=== PATIENT | male | born 1975 | race Caucasian/White ===

== ENCOUNTER 2016-12-31 20:58 | Inpatient (IN) | payer OTHER ==
[~2016-12-31] VITALS: Ht 177.8 cm; Wt 99.2 kg
[2016-12-31] MEDS ORDERED: MoRPHine SULFATE 4 MG/ML 1 ML CARP\\VIAL IV STA (22:00)
--- NOTE | 2016-12-31 22:11 | EMERGENCY ROOM VISIT NOTE ---
History First contact with patient: 21:52 Chief Complaint: KNEEPAIN Stated Complaint: FLUID ON RIGHT KNEE History of Present Illness The patient is a 41 year old male who presents to the Emergency Room with complaints of right knee pain and swelling that started approximately one week ago. He states last Monday that he went to another emergency department with a total him to ice the knee and take naproxen which she has been doing. He states that the knee was feeling better until a few days ago when the pain is swelling got significantly worse. He has not been able to walk on the knee since yesterday due to severe pain. He denies any injury to the knee. He has had some associated chills, but is unsure of fevers, that started today. He reports a remote history of fluid on his right knee approximately 20 years ago, he does not remember what this was from, but states that they drained it and it got better and he has not had any recurrent issues with it until now. He is unsure of any known tick exposure, thinks but states that he has several dogs and had a dog that was diagnosed with Lyme disease in the past. Denies any other symptoms of headache, neck pain or stiffness, chest pain, shortness of breath, abdominal pain, back pain, urinary symptoms, calf pain or swelling, rash. Review of Systems A complete 10 point review of systems was reviewed with the patient with pertinent positives and negatives as per history of present illness. All else were negative. Past Medical/Surgical History Medical Problems: (1) Infection of right knee Social History Smoking Status: Never Smoker Current/Historical Medications Scheduled Cetirizine (Zyrtec), 10 MG PO DAILY Naproxen (Naprosyn), 500 MG PO BID Simvastatin (Zocor), Unknown Dose PO QPM Scheduled PRN [Unknown Antacid], 1 TAB PO DAILY PRN for GI Upset Physical Exam Vital Signs Date Time Temp Pulse Resp B/P (MAP) Pulse Ox O2 Delivery O2 Flow Rate FiO2 01/01/17 09:00 79 16 125/69 94 Nasal Cannula 4 01/01/17 08:50 83 16 170/80 98 Nasal Cannula 4 01/01/17 08:40 90 16 165/87 98 Oxymask 15 01/01/17 08:30 102 16 159/92 98 Oxymask 15 01/01/17 08:21 36.7 104 16 163/100 98 Oxymask 15 01/01/17 06:33 70 18 124/68 96 Room Air 01/01/17 04:54 80 18 122/62 98 Room Air 01/01/17 03:05 71 16 127/63 96 Room Air 01/01/17 01:14 73 16 115/68 98 Room Air 12/31/16 23:14 76 16 130/71 98 Room Air 12/31/16 21:04 37.4 104 18 159/96 96 Room Air Physical Exam CONSTITUTIONAL: No acute distress. Well appearing and well nourished. Alert and oriented X 4 with normal affect. HEENT: Normocephalic, atraumatic. Pupils equal, round and reactive to light, EOMI. TMs normal. Pharynx normal. NECK: Supple, full active range of motion without discomfort. RESPIRATORY: Clear to auscultation bilaterally with no wheezing, crackles, rhonchi or stridor. Equal expansion bilaterally. CARDIOVASCULAR: Regular rate and rhythm with no murmurs, rubs or gallops. Normal peripheral perfusion. No edema. GASTROINTESTINAL: Soft, nontender, nondistended. Bowel sounds present in all quadrants. MUSCULOSKELETAL: The right knee is moderately tender, swollen, slightly erythematous, and warm to touch. There is a large effusion noted. Unable to fully extend the knee, only flexes to approximately 30 due to severe worsening of pain. Full range of motion of all other joints without discomfort. INTEGUMENTARY: No rash or other significant dermatologic conditions noted. NEUROLOGIC: Cranial nerves II-XII grossly intact. No focal neurologic deficits noted. Medical Decision & Procedures ER Provider Diagnostic Interpretation: RIGHT KNEE 2 VIEWS CLINICAL HISTORY: Right knee pain and swelling. Trauma. FINDINGS: AP and crosstable lateral views of the right knee are obtained. No prior studies are available for comparison at the time of dictation. The skeletal structures are well mineralized. No fracture is seen. There is mild degenerative narrowing at the patellofemoral articulation. There are marginal osteophytes and patellar enthesophytes. A large joint effusion is noted. Prepatellar soft tissue swelling is observed. IMPRESSION: Prepatellar soft tissue swelling and large joint effusion. No right knee fracture is identified. Laboratory Results 12/31/16 22:13 Test 12/31/16 22:13 01/01/17 01:20 Immature Granulocyte % (Auto) 0.4 % White Blood Count 10.47 K/uL (4.8-10.8) Red Blood Count 4.81 M/uL (4.7-6.1) Hemoglobin 15.0 g/dL (14.0-18.0) Hematocrit 42.8 % (42-52) Mean Corpuscular Volume 89.0 fL (80-100) Mean Corpuscular Hemoglobin 31.2 pg (25-34) Mean Corpuscular Hemoglobin Concent 35.0 g/dl (32-36) Platelet Count 184 K/uL (130-400) Mean Platelet Volume 11.1 fL (7.4-10.4) Neutrophils (%) (Auto) 61.2 % Lymphocytes (%) (Auto) 26.7 % Monocytes (%) (Auto) 9.5 % Eosinophils (%) (Auto) 1.9 % Basophils (%) (Auto) 0.3 % Neutrophils # (Auto) 6.41 K/uL (1.4-6.5) Lymphocytes # (Auto) 2.80 K/uL (1.2-3.4) Monocytes # (Auto) 0.99 K/uL (0.11-0.59) Eosinophils # (Auto) 0.20 K/uL (0-0.5) Basophils # (Auto) 0.03 K/uL (0-0.2) Immature Granulocyte # (Auto) 0.04 K/uL (0.00-0.02) Erythrocyte Sedimentation Rate 28 mm/hr (0-14) Anion Gap 7.0 mmol/L (3-11) Est Creatinine Clear Calc Drug Dose 103.4 ml/min Estimated GFR () 95.1 Estimated GFR (Non- 82.0 BUN/Creatinine Ratio 11.9 (10-20) Uric Acid 6.3 mg/dl (2.6-7.2) Calcium Level 9.0 mg/dl (8.5-10.1) Total Bilirubin 2.1 mg/dl (0.2-1) Direct Bilirubin 0.4 mg/dl (0-0.2) Aspartate Amino Transf (AST/SGOT) 11 U/L (15-37) Alanine Aminotransferase (ALT/SGPT) 32 U/L (12-78) Alkaline Phosphatase 77 U/L (45-117) C-Reactive Protein 6.39 mg/dl (0-0.29) Total Protein 7.3 gm/dl (6.4-8.2) Albumin 4.0 gm/dl (3.4-5.0) Thyroid Stimulating Hormone (TSH) 1.890 uIu/ml (0.300-4.500) Lyme Disease IgG Antibody NEG (NEG) Lyme Disease IgM Antibody NEG (NEG) Anti-Streptolysin O Antibody Screen POS IU/ml (<200 IU) Anti-Streptolysin O Antibody Titer 200 IU/ml (<200 IU) Synovial Fluid Source KNEE Synovial Fluid Color EUGENE Synovial Fluid Appearance CLOUDY Synovial Fluid WBC 01582 /uL (0-200) Synovial Fluid RBC 91405 /uL Synovial Fluid Polynuclear WBCs % 95.1 % Synovial Fluid Mononuclear WBCs % 4.9 % Medications Administered Medications (Trade) Dose Ordered Sig/Kristian Route Start Time Stop Time Status Last Admin Dose Admin Morphine Sulfate (MoRPHine SULFATE INJ) 4 mg NOW STAT IV 12/31/16 22:00 12/31/16 22:05 DC 12/31/16 22:00 4 MG Morphine Sulfate (MoRPHine SULFATE INJ) 4 mg NOW STAT IV 01/01/17 00:50 01/01/17 00:51 DC 01/01/17 00:50 4 MG Bacitracin (Bacitracin Inj) 150,000 units STK-MED ONCE .ROUTE 01/01/17 06:16 01/01/17 06:17 DC 01/01/17 06:16 50,000 UNITS Lidocaine/ Epinephrine (Xylocaine/Epine 1% Inj) 20 ml STK-MED ONCE .ROUTE 01/01/17 06:40 01/01/17 06:41 DC 01/01/17 06:40 10 ML Oxycodone HCl (Roxicodone Immediate Rel Tab) 1-2 TABS FOR PAIN 1 TABLET ... Q4H PRN PO 01/01/17 09:00 01/15/17 08:59 01/01/17 15:30 10 MG Procedure Knee Arthrocentesis, right Indication: Knee effusion, warm to touch, rule out septic arthritis Verbal consent was obtained after the risks and benefits were explained, including but not limited to bleeding/clotting, scarring, infection, pain, and bone/joint/nerve damage. At this time, the risks of the procedure are less than the risks of NOT performing the procedure. A time out was taken and the correct patient and site identified. The patient was placed in the supine position with a towel roll under the right knee in a slightly flexed position. The knee was prepped with betadine and draped in the standard sterile fashion. The superior lateral joint space was identified, anesthetized locally with 1% buffered lidocaine. An 18G needle was inserted through the skin, and constant steady traction was applied to the syringe as the needle was slowly advanced, until return of fluid was achieved. 65 mL of hazy, yellow fluid drained from the joint space. Fluid sent to the lab for evaluation. The needle was removed and the skin was cleaned with sterile gauze and saline, and a bandaid was placed over the insertion site. The patient tolerated the procedure well and there were no complications. Medical Decision CC: Patient presenting with complaint of right knee pain/swelling Interpretation of Labs: No leukocytosis, no anemia, no significant ocular abnormalities, normal renal function, normal liver enzymes, elevated inflammatory markers. Differential Diagnosis: Includes, but not limited to differential diagnoses includes knee sprain/strain, joint effusion, Lyme arthritis, gout, septic joint , among others. Medication Reconciliation: I attest that I have personally reviewed the patient' s current medication list. Vital signs review: I reviewed the patient's vital signs and interpret them as follows: T: Afebrile; BP: Hypertensive; HR: Tachycardic; RR: Within normal limits; Pulse Ox: Within normal limits on room air. Summary: Patient was evaluated at bedside, history of physical exam performed. Patient is alert and in no acute distress, resting calmly in the stretcher. Evaluation of the right knee reveals a large effusion, very tender to palpation , warm to touch when compared to the rest of the leg, slightly erythematous, with significantly diminished range of motion. Orders were placed at bedside for labs including ESR, CRP, Lyme titers, right knee x-ray to evaluate for bony abnormalities. Patient is low risk for septic arthritis by Yaron score, and patient is afebrile, therefore blood cultures were not drawn. Right knee arthrocentesis was performed due to concern for septic joint, and studies were sent to the lab. Patient discussed with Dr. Olivas, who agrees with my assessment and plan. Labs reviewed as above, notable for elevated inflammatory markers. X-ray shows no acute bony abnormalities. Arthrocentesis of the right knee performed as above. Cloudy yellow fluid drained. Reviewed synovial fluid, concerning for large blood cell count. Gram stain reviewed which also shows multiple blood cells with no organisms identified. 4:40am - I spoke on the phone with Dr. Franco, Orthopedics, who agrees to evaluate the patient. After evaluation of the patient, Dr. Arrieta agrees with concern for septic joint and is taking the patient to the OR later today. Patient stable at time of admission. Impression Primary Impression: Septic arthritis of knee, right Departure Information Dispostion Admitted as an inpatient Condition FAIR Referrals No Doctor, Assigned (PCP) Patient Instructions My [facility] Problem Qualifiers Primary Impression: Septic arthritis of knee, right Septic arthritis organism: due to unspecified organism Qualified Codes: M00.9 - Pyogenic arthritis, unspecified
[2016-12-31] MEDS ORDERED: SIMV10TA2 PO (22:19)
[2016-12-31] MEDS ORDERED: CETI10TA84 PO (22:19)
[2016-12-31] MEDS ORDERED: [UNRECOGNIZED DRUG - REMARK] PO (22:20)
[2016-12-31] MEDS ORDERED: NAPR-1169 PO (22:21)
[2016-12-31 22:33] LABS: BASO % 0.3 %; BASO ABS # 0.03 K/uL (0-0.2); COMPLETE YES; EOS % 1.9 %; HEMATOCRIT 42.8 % (42-52); IG% 0.4 %; LYMPH % 26.7 %; MEAN CORPUSCULAR HEMOGLOBIN 31.2 pg (25-34); MEAN PLATELET VOLUME 11.1 fL (7.4-10.4); MONO % 9.5 %; NEUT % 61.2 %; PLATELET COUNT 184 K/uL (130-400); RED BLOOD COUNT 4.81 M/uL (4.7-6.1); WHITE BLOOD COUNT 10.47 K/uL (4.8-10.8)
[2016-12-31 22:56] LABS: BUN/CREATININE RATIO 11.9 (10-20); CREATININE 1.11 mg/dl (0.60-1.40); POTASSIUM 4.1 mmol/L (3.5-5.1); URIC ACID 6.3 mg/dl (2.6-7.2)
[2016-12-31 23:00] LABS: ANTI-STREP O SCR: 5YRS OR > POS IU/ml (<200 IU)
--- NOTE | 2016-12-31 23:04 | DIAGNOSTIC IMAGING REPORT ---
RIGHT KNEE 2 VIEWS CLINICAL HISTORY: Right knee pain and swelling. Trauma. FINDINGS: AP and crosstable lateral views of the right knee are obtained. No prior studies are available for comparison at the time of dictation. The skeletal structures are well mineralized. No fracture is seen. There is mild degenerative narrowing at the patellofemoral articulation. There are marginal osteophytes and patellar enthesophytes. A large joint effusion is noted. Prepatellar soft tissue swelling is observed. IMPRESSION: Prepatellar soft tissue swelling and large joint effusion. No right knee fracture is identified. Electronically signed by: Wilmer Curry M.D. 12/31/2016 11:02 PM Dictated Date/Time: 12/31/2016 11:01 PM
[2016-12-31 23:07] LABS: C-REACTIVE PROTEIN 6.39 mg/dl (0-0.29); THYROID STIMULATING HORMONE 1.89 uIu/ml (0.300-4.500)
[2016-12-31 23:08] LABS: ANTI-STREP O TITRE: 5YR OR > 200 IU/ml (<200 IU)
[2016-12-31 23:24] LABS: LYME DISEASE AB IGG NEG (NEG); LYME DISEASE AB IGM NEG (NEG)
[2017-01-01] VITALS (7 sets, daily range): BP systolic 99–131; BP diastolic 60–84; PULSE 71–95; TEMP 36.8–37.9; O2SAT 92–97; Ht 177.8 cm; Wt 99.2 kg
[2017-01-01] MEDS ORDERED: MoRPHine SULFATE 4 MG/ML 1 ML CARP\\VIAL IV STA (00:50)
[2017-01-01] MEDS ORDERED: XYLOCAINE 1%/SOD BICARB 20 ML VIAL INFIL ONE (01:00)
[2017-01-01 03:37] LABS: SYNOVIAL FLUID APPEARANCE CLOUDY; SYNOVIAL FLUID COLOR AMBER; SYNOVIAL FLUID MONONUC RELAT 4.9 %; SYNOVIAL FLUID POLYNUC RELAT 95.1 %
--- NOTE | 2017-01-01 06:10 | Orthopedic Consultation ---
Orthopedic Consultation Date of Consultation: Jan 01, 2017. Attending Physician: Reason for Consultation: Right knee pain and swelling History of Present Illness Patient is a 41-year-old male with no significant past medical history is had increasing right knee pain. He started having a little bit of discomfort last week. Denies trauma. He was seen in [place] emergency room and was instructed to follow up with us in the office this past week. 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 During the week his knee pain improved. However starting on Monday he had progressive pain and swelling in the knee to the point where he is no longer able to bear weight on it. He denies fevers but did have some chills however this was when he was standing outside in the cold. He had fluid aspirated from it here in the emergency room however he states that the knee has swollen backup since that time. It had felt better after the aspiration. However now his pain is starting to come back as the swelling has recurred. Social History Smoking Status: Never Smoker Drug Use: none Marital Status: Housing Status: lives with family Occupation Status: employed Allergies Coded Allergies: No Known Allergies (Unverified , 12/31/16) Home Medications Scheduled Cetirizine (Zyrtec), 10 MG PO DAILY Naproxen (Naprosyn), 500 MG PO BID Simvastatin (Zocor), Unknown Dose PO QPM Scheduled PRN [Unknown Antacid], 1 TAB PO DAILY PRN for GI Upset Review of Systems Constitutional: + chills, No fever, No weight loss Eyes: No worsening of vision ENT: No hearing loss Respiratory: No cough Cardiovascular: No chest pain Abdomen: No pain Musculoskeletal: + joint pain Physical Exam Date Time Temp Pulse Resp B/P (MAP) Pulse Ox O2 Delivery O2 Flow Rate FiO2 01/01/17 04:54 80 18 122/62 98 Room Air 01/01/17 03:05 71 16 127/63 96 Room Air 01/01/17 01:14 73 16 115/68 98 Room Air 12/31/16 23:14 76 16 130/71 98 Room Air 12/31/16 21:04 37.4 104 18 159/96 96 Room Air Right knee: There is a large effusion. He is tender to palpation over the suprapatellar pouch. Range of motion is 0-30 limited by pain. The knee is stable to varus and valgus stress at 0 and 30 of flexion. No tenderness to palpation on the medial or lateral joint lines. General Appearance: WD/WN Head: normocephalic Eyes: normal inspection Neck: supple Respiratory/Chest: lungs clear Cardiovascular: regular rate, rhythm Laboratory Results Last 24 Hours Test 12/31/16 22:13 01/01/17 01:20 White Blood Count 10.47 K/uL Red Blood Count 4.81 M/uL Hemoglobin 15.0 g/dL Hematocrit 42.8 % Mean Corpuscular Volume 89.0 fL Mean Corpuscular Hemoglobin 31.2 pg Mean Corpuscular Hemoglobin Concent 35.0 g/dl Platelet Count 184 K/uL Mean Platelet Volume 11.1 fL Neutrophils (%) (Auto) 61.2 % Lymphocytes (%) (Auto) 26.7 % Monocytes (%) (Auto) 9.5 % Eosinophils (%) (Auto) 1.9 % Basophils (%) (Auto) 0.3 % Neutrophils # (Auto) 6.41 K/uL Lymphocytes # (Auto) 2.80 K/uL Monocytes # (Auto) 0.99 K/uL Eosinophils # (Auto) 0.20 K/uL Basophils # (Auto) 0.03 K/uL RDW Standard Deviation 40.5 fL RDW Coefficient of Variation 12.6 % Immature Granulocyte % (Auto) 0.4 % Immature Granulocyte # (Auto) 0.04 K/uL Erythrocyte Sedimentation Rate 28 mm/hr Sodium Level 140 mmol/L Potassium Level 4.1 mmol/L Chloride Level 105 mmol/L Carbon Dioxide Level 28 mmol/L Anion Gap 7.0 mmol/L Blood Urea Nitrogen 13 mg/dl Creatinine 1.11 mg/dl Est Creatinine Clear Calc Drug Dose 103.4 ml/min Estimated GFR () 95.1 Estimated GFR (Non- 82.0 BUN/Creatinine Ratio 11.9 Random Glucose 106 mg/dl Uric Acid 6.3 mg/dl Calcium Level 9.0 mg/dl Total Bilirubin 2.1 mg/dl Direct Bilirubin 0.4 mg/dl Aspartate Amino Transf (AST/SGOT) 11 U/L Alanine Aminotransferase (ALT/SGPT) 32 U/L Alkaline Phosphatase 77 U/L C-Reactive Protein 6.39 mg/dl Total Protein 7.3 gm/dl Albumin 4.0 gm/dl Thyroid Stimulating Hormone (TSH) 1.890 uIu/ml Lyme Disease IgG Antibody NEG Lyme Disease IgM Antibody NEG Anti-Streptolysin O Antibody Screen POS IU/ml Anti-Streptolysin O Antibody Titer 200 IU/ml Synovial Fluid Source KNEE Synovial Fluid Color EUGENE Synovial Fluid Appearance CLOUDY Synovial Fluid WBC 55725 /uL Synovial Fluid RBC 25264 /uL Synovial Fluid Polynuclear WBCs % 95.1 % Synovial Fluid Mononuclear WBCs % 4.9 % Assessment & Plan Right knee effusion, likely septic arthritis The patient has had progressive pain and swelling over the last 24 hour's. He was unable to bear weight when he presented to the emergency room. Aspiration was for yellow hazy fluid per the emergency room staff. It has greater than 62, 000 white blood cell count and it. His white blood cell count is 10. His sedimentation rate and CRP are both elevated. Sedimentation rate is 26 and the CRP is 6. His uric acid level is normal. The fluid was sent off for crystals but that analysis will not be available until Monday when the pathologist returns. Given the lateral elevation of the white blood cell count and his significantly elevated sedimentation rate as well as CRP feeling is this represents a septic arthritis. My conclusion from this consultation is that he will require arthroscopic irrigation and debridement. We'll plan for this, this morning.
--- NOTE | 2017-01-01 06:14 | History and Physical ---
History & Physical Date Jan 01, 2017. Chief Complaint Right knee pain and swelling History of Present Illness Patient is a 41-year-old male with no significant past medical history is had increasing right knee pain. He started having a little bit of discomfort last week. Denies trauma. He was seen in [place] emergency room and was instructed to follow up with us in the office this past week. 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 During the week his knee pain improved. However starting on Monday he had progressive pain and swelling in the knee to the point where he is no longer able to bear weight on it. He denies fevers but did have some chills however this was when he was standing outside in the cold. He had fluid aspirated from it here in the emergency room however he states that the knee has swollen backup since that time. It had felt better after the aspiration. However now his pain is starting to come back as the swelling has recurred. Past Medical/Surgical History Hyperlipidemia Left carpal tunnel release Repair laceration to thumb Additional History Hepatic Disease: No Endocrine Disorder: No Kidney Disease: No Hypertension: No Heart Disease: No Bleeding Tendencies: No Allergies Coded Allergies: No Known Allergies (Unverified , 12/31/16) Home Medications Scheduled Cetirizine (Zyrtec), 10 MG PO DAILY Naproxen (Naprosyn), 500 MG PO BID Simvastatin (Zocor), Unknown Dose PO QPM Scheduled PRN [Unknown Antacid], 1 TAB PO DAILY PRN for GI Upset Physical Examination Skin: warm/dry, no rash Eyes: normal inspection, EOMI, sclerae normal Head: normocephalic, atraumatic Respiratory/Chest: lungs clear, normal breath sounds, no respiratory distress Cardiovascular: regular rate, rhythm, no edema, no murmur Extremities: + pertinent finding (right knee: Large effusion, tender to palpation suprapatellar pouch. Range of motion is limited to 0-30 secondary to pain. Warmth. Mild erythema) Diagnosis Right knee effusion likely septic arthritis Plan of Treatment The patient has had progressive pain and swelling over the last 24 hour's. He was unable to bear weight when he presented to the emergency room. Aspiration was for yellow hazy fluid per the emergency room staff. It has greater than 62, 000 white blood cell count and it. His white blood cell count is 10. His sedimentation rate and CRP are both elevated. Sedimentation rate is 26 and the CRP is 6. His uric acid level is normal. The fluid was sent off for crystals but that analysis will not be available until Monday when the pathologist returns. Given the lateral elevation of the white blood cell count and his significantly elevated sedimentation rate as well as CRP feeling is this represents a septic arthritis. The plan is for arthroscopic irrigation and debridement. The risks, benefits, alternatives to surgery including but not limited to infection, pain, stiffness, DVT, need for revision surgery, damage to blood vessels, damage to nerves, possible arthritic changes secondary to septic arthritis, risks of anesthesia were discussed with the patient and he wishes to proceed
[2017-01-01] MEDS ORDERED: BACITRACIN 50000 UNIT VIAL ONE (06:16)
[2017-01-01] MEDS ORDERED: LIDOCAINE HCL 2% 2 ML VIAL (20MG/ML) ONE ×2 (06:26)
[2017-01-01] MEDS ORDERED: PROPOFOL IV EMULSION 10 MG/ML 20 ML VIAL IV ONE (06:26)
[2017-01-01] MEDS ORDERED: CEFAZOLIN SOD 2000MG/10 ML IV PUSH IV ONE ×2 (06:30→14:00)
[2017-01-01] MEDS ORDERED: ONDANSETRON INJ 2 MG/ML 2 ML VIAL ONE (06:33)
[2017-01-01] MEDS ORDERED: MIDAZOLAM HCL 1 MG/ML 2ML VIAL ONE (06:33)
[2017-01-01] MEDS ORDERED: FENTANYL CITRATE INJ 50 MCG/1 ML 2 ML VIAL ONE ×2 (06:33→07:18)
[2017-01-01] MEDS ORDERED: EpINEphrine HCL INJ 1 MG/ML 5ML SYRINGE ONE (06:40)
[2017-01-01] MEDS ORDERED: BUPIVACAINE 0.5 % 5 MG/1 ML MPF 30ML VIAL ONE (06:40)
[2017-01-01] MEDS ORDERED: LIDOCAINE/EPINEPHRINE 1% 20 ML VIAL ONE (06:40)
[2017-01-01] MEDS ORDERED: SUCCINYLCHOLINE CHLORIDE 20 MG/ML 10 ML VIAL IV ONE (07:18)
[2017-01-01] MEDS ORDERED: CEFAZOLIN SOD 1 GM VIAL ONE (07:22)
[2017-01-01] MEDS ORDERED: GLYCOPYRROLATE INJ 0.2 MG/ML VIAL ONE (08:01)
[2017-01-01] MEDS ORDERED: NEOSTIGMINE METHYLSULFATE 5 MG/5 ML SYR ONE (08:01)
[2017-01-01] MEDS ORDERED: ALBUTEROL HFA INHALER 8.5 GM INH ONE (08:26)
[2017-01-01] MEDS ORDERED: LABETALOL HCL IV 5 MG/ML 20ML IV PRN (08:30)
[2017-01-01] MEDS ORDERED: ONDANSETRON INJ 2 MG/ML 2 ML VIAL IV PRN (08:30)
[2017-01-01] MEDS ORDERED: ATROPINE SULFATE 0.1 MG/ML 5ML SYR IV PRN (08:30)
[2017-01-01] MEDS ORDERED: PROMETHAZINE HCL INJ 12.5 MG in SODIUM CHLORIDE 0.9% 50ML 50 ML IV PRN (08:30)
[2017-01-01] MEDS ORDERED: HYDROmorphone INJ 1 MG/ML SYR IV PRN (08:30)
[2017-01-01] MEDS ORDERED: NALOXONE HCL 0.4 MG/1 ML VIAL/CARP IV PRN (08:30)
[2017-01-01] MEDS ORDERED: FLUMAZENIL 0.1 MG/1 ML 10 ML VIAL IV PRN (08:30)
[2017-01-01] MEDS ORDERED: EpHEDrine SULFATE INJ 50 MG/ML AMP IV PRN (08:30)
--- NOTE | 2017-01-01 08:38 | [facility] Operative Report ---
Operative Report Operative Date Jan 01, 2017. Pre-Operative Diagnosis Septic Right knee Post-Operative Diagnosis SAME PREOP Procedure(s) Performed ARTHROSCOPIC INCISION AND DRAINAGE RIGHT KNEE, chondroplasty patella Surgeon DR. BARAHONA Syrup Shed Supervisor Surgeon(s) 0 Estimated Blood Loss 5cc Findings large effusion with very cloudy fluid Specimens A. STAT GRAM STAIN , CULTURE AND SENSITIVITY, AEROBES AND ANAEROBES Drains 1 hemovac Anesthesia geta Complication(s) None Disposition Recovery Room / PACU Indications 41-year-old male with progressive pain and swelling in the right knee. Aspiration revealed cloudy yellow fluid with 62,000 white blood cell count elevated sedimentation rate of 26 and an elevated CRP of 6. With my feeling that he has a septic arthritis and the patient wishes to proceed with arthroscopic I and D Description of Procedure Risks, benefits and alternatives to surgery including, but not limited to, infection, DVT, pain, stiffness, need for revision surgery, failure to relieve all symptoms, damage to blood vessels, damage to nerves, risk of the anesthesia were discussed with the patient and they wished to proceed. The patient was identified. Laterality was confirmed and marked. The patient received a preoperative antibiotic. They were transferred to the operating room and placed in supine position and induced into general endotracheal anesthesia per the anesthesia staff. A well-padded tourniquet was placed on the thigh and the limb was prepped and draped in the usual standard manner with ChloraPrep. The limb was exsanguinated and the tourniquet was inflated. I made a standard anterolateral viewing portal made through a stab incision and bluntly entered the suprapatellar pouch. A large amount of cloudy fluid was expressed out of the trocar and collected and sent for culture. There was a fair amount of fibrinous material within the knee. There was grade 3 and region of 4 cartilage of the patella. The unstable chondral flaps were debrided utilizing a shaver. There was grade 0 cartilage of the trochlea. There was grade 0 cartilage of the medial femoral condyle. There was grade 1 cartilage of the medial tibial plateau. The medial meniscus was normal. The ACL and PCL were probed and were normal. The lateral meniscus was normal There was grade 0 cartilage of the lateral femoral condyle. There was grade 1 cartilage of the lateral tibial plateau with a crab meat-type appearance. I cycled a total of 9 L of fluid through the knee to thoroughly irrigate. The synovium was debrided using a shaver. All of the instrumentation was removed from the knee. The portal sites were closed with nylon. A sterile dressing was applied and the tourniquet was released. All needle and sponge counts were correct at the end of the procedure. The patient was transferred to the PACU in stable condition without apparent complication. I attest to the content of the Intraoperative Record and any orders documented therein. Any exceptions are noted below.
[2017-01-01] MEDS ORDERED: MAGNESIUM HYDROXIDE SUSP 30 ML UDC PO PRN (09:00)
[2017-01-01] MEDS ORDERED: MoRPHine SULFATE 2 MG/ML CARP IV PRN (09:00)
[2017-01-01] MEDS ORDERED: ZOLPIDEM TARTRATE 5 MG TAB PO PRN (09:00)
--- NOTE | 2017-01-01 09:17 | Anesthesiology Progress Note ---
Anesthesia Post Op Note Date & Time Jan 01, 2017 at 09:17 Vital Signs Pain Intensity: 0 Vital Signs Past 12 Hours Date Time Temp Pulse Resp B/P (MAP) Pulse Ox O2 Delivery O2 Flow Rate FiO2 01/01/17 09:10 37.5 82 16 121/74 94 Nasal Cannula 4 01/01/17 09:00 79 16 125/69 94 Nasal Cannula 4 01/01/17 08:50 83 16 170/80 98 Nasal Cannula 4 01/01/17 08:40 90 16 165/87 98 Oxymask 15 01/01/17 08:30 102 16 159/92 98 Oxymask 15 01/01/17 08:21 36.7 104 16 163/100 98 Oxymask 15 01/01/17 06:33 70 18 124/68 96 Room Air 01/01/17 04:54 80 18 122/62 98 Room Air 01/01/17 03:05 71 16 127/63 96 Room Air 01/01/17 01:14 73 16 115/68 98 Room Air 12/31/16 23:14 76 16 130/71 98 Room Air Notes Mental Status: alert / awake / arousable, participated in evaluation Pt Amnestic to Procedure: Yes Nausea / Vomiting: adequately controlled Pain: adequately controlled Airway Patency, RR, SpO2: stable & adequate BP & HR: stable & adequate Hydration State: stable & adequate Anesthetic Complications: no major complications apparent
[2017-01-01] MEDS: D5W AND 1/2NSS + 20MEQ KCL 1,000 ML IV SCH ×2 (11:04→21:08)
[2017-01-01] MEDS: OXYCODONE HCL IR 5 MG TAB (IMMEDIATE RELEASE) PO PRN ×2 (11:04→15:30)
[2017-01-01] MEDS: KETOROLAC TROMETHAMINE 30 MG/ML VIAL IV. SCH ×2 (11:36→18:37)
[2017-01-01] MEDS: PANTOprazole SOD 40 MG TAB PO SCH (12:32)
[2017-01-01] MEDS: CETIRIZINE HCL 10 MG TAB PO SCH (12:33)
[2017-01-01] MEDS ORDERED: CEFAZOLIN IV 2,000 MG in SYRINGE 0 ML IV ONE (14:00)
[2017-01-01] MEDS: ACETAMINOPHEN 500 MG TAB PO SCH ×2 (14:17→21:09)
[2017-01-02] MEDS: KETOROLAC TROMETHAMINE 30 MG/ML VIAL IV. SCH ×2 (00:18→06:18)
[2017-01-02 03:10] VITALS: BP 105/66; PULSE 70; TEMP 37; O2SAT 94
[2017-01-02] MEDS ORDERED: CEFAZOLIN SOD 2000MG/10 ML IV PUSH IV ONE (06:00)
[2017-01-02] MEDS: ACETAMINOPHEN 500 MG TAB PO SCH ×3 (06:17→21:48)
[2017-01-02] MEDS: D5W AND 1/2NSS + 20MEQ KCL 1,000 ML IV SCH ×2 (06:18→16:12)
--- NOTE | 2017-01-02 06:59 | Orthopedic Progress Note ---
Orthopedic Progress Note Date of Service Jan 02, 2017. Subjective Post OP Day: 1 Reports: feeling well, pain controlled w PO medications, Denies: complaints, chest pain, SOB, nausea / vomiting, light headedness, calf pain Objective calves soft nontender, N/V intact, capillary refill less than 2 sec., dressing C /D/I, A&O x3, toes mobile, hemovac drainage (35cc) Date Time Temp Pulse Resp B/P (MAP) Pulse Ox O2 Delivery O2 Flow Rate FiO2 01/02/17 03:10 37.0 70 16 105/66 (79) 94 Room Air 01/02/17 00:15 Room Air 01/01/17 20:02 37.0 89 18 99/60 (73) 96 Room Air 01/01/17 16:42 Room Air 01/01/17 15:13 37.9 79 18 112/68 (83) 95 Room Air 01/01/17 12:35 36.8 95 18 131/79 (96) 92 Room Air 01/01/17 11:31 87 17 126/79 (95) 96 Room Air 01/01/17 10:34 94 17 121/74 (90) 93 Room Air 01/01/17 10:13 Nasal Cannula 4.0 01/01/17 10:02 Nasal Cannula 4.0 01/01/17 09:56 36.8 71 18 123/84 (97) 97 Nasal Cannula 3.0 01/01/17 09:35 36.9 75 16 118/75 (89) 97 Nasal Cannula 4.0 01/01/17 09:20 37.5 76 16 125/72 95 Nasal Cannula 4 01/01/17 09:10 37.5 82 16 121/74 94 Nasal Cannula 4 01/01/17 09:00 79 16 125/69 94 Nasal Cannula 4 01/01/17 08:50 83 16 170/80 98 Nasal Cannula 4 01/01/17 08:40 90 16 165/87 98 Oxymask 15 01/01/17 08:30 102 16 159/92 98 Oxymask 15 01/01/17 08:21 36.7 104 16 163/100 98 Oxymask 15 Laboratory Results 24 Hours: Test 01/02/17 06:50 Assessment & Plan Assessment: POD #1 arthroscopic I&D right knee, chondroplasty patella. Plan: PT/OT Medical Management DVT - Cultures still pending at this time Gram stain with no organisms on growth. Inhouse Planning Pain Management: Morphine, PO Tylenol, Oxy IR DVT Prophylaxis: SCDs, ASA Discharge Planning Discharge Planning: uncertain
[2017-01-02 07:11] LABS: HEMATOCRIT 39.1 % (42-52); MEAN CELL VOLUME 90.9 fL (80-100); MEAN CORPUSCULAR HEMOGLOBIN 30.9 pg (25-34); MEAN PLATELET VOLUME 10.8 fL (7.4-10.4); PLATELET COUNT 155 K/uL (130-400); WHITE BLOOD COUNT 7.75 K/uL (4.8-10.8)
[2017-01-02 07:46] VITALS: BP 126/73; PULSE 85; TEMP 37; O2SAT 94
[2017-01-02] MEDS: CETIRIZINE HCL 10 MG TAB PO SCH (09:15)
[2017-01-02] MEDS: PANTOprazole SOD 40 MG TAB PO SCH (09:15)
[2017-01-02] MEDS: ASPIRIN 81 MG ECTAB PO SCH (09:16)
--- NOTE | 2017-01-02 10:04 | Progress Note ---
Progress Note Date of Service Jan 02, 2017. Progress Note ID Consult Dictated # [id number] A/P: 1. Septic Arthritis right knee -Will start emperic abx and follow cultures -Lyme pcr pending -Will follow, thank you
[2017-01-02] MEDS ORDERED: VANCOMYCIN CONSULT ACTIVE PRN (10:15)
--- NOTE | 2017-01-02 10:15 | INFECT. DISEASE CONSULTATION ---
DATE OF CONSULTATION: 01/02/2017 REQUESTING PHYSICIAN: Manolo Franco MD. HISTORY OF PRESENT ILLNESS: This is a 41-year-old gentleman who was admitted to the hospital after he had worsening knee pain and swelling. He states that he is originally from [place] but does drive across [place]. He denies any trauma to his legs. He woke up a week ago and had some pain and swelling in his knee. He was followed at [facility]. He states he was given a prescription for naproxen, but was unable to fill this as [place]. He denies being put on any antibiotics. He had plans to follow up with orthopedic office; however, over the weekend, he had worsening pain and swelling, was unable to bear weight on his leg. He reported to the ER and was evaluated by orthopedics. He was subsequently taken to the operating room for washout. He did have an aspiration which had over 63,000 white blood cells with 95% neutrophils. Cultures are pending. He has not had a leukocytosis; however, his sed rate has been elevated at 28. He was given perioperative Ancef, but otherwise has not been on antibiotics. He did have a one time temperature of 37.9. He currently states that his pain is well controlled. He does admit to some soreness in the knee, but attributes this from being taken to the operating room. His drain remains in place. He denies any fevers or chills. He denies any purulent drainage or bleeding from the knee prior to admission. He denies any fevers or chills. REVIEW OF SYSTEMS: His remaining review of systems were reviewed and are unremarkable except for as noted. PAST MEDICAL HISTORY: Significant for high cholesterol. PAST SURGICAL HISTORY: Significant for carpal tunnel surgery and repair of laceration to thumb. ALLERGIES: He has no known drug allergies. FAMILY HISTORY: Noncontributory. SOCIAL HISTORY: Unremarkable. CURRENT MEDICATIONS: Include aspirin, Tylenol, Zyrtec, Toradol, Protonix, oxycodone, morphine, milk of magnesia and Ambien. PHYSICAL EXAMINATION: VITAL SIGNS: He is afebrile currently, T-max is 37.9, pulse 85, respiratory rate 18, blood pressure 126/73, oxygen saturation is 94-96% on room air. GENERAL: He is awake, alert and oriented x3. He is in no acute distress. HEENT: Mucous membranes are moist. Extraocular muscles are intact. HEART: Regular. LUNGS: Clear bilaterally. ABDOMEN: Soft, nontender, nondistended. There is no lower extremity edema. Right knee operating room dressing is clean, dry and intact. Drain is in place with serosanguineous fluid. LABORATORY STUDIES: CBC today reveals a white blood cell count of 7.7, hemoglobin of 13.3, platelets of 155. His sed rate was 28. Chemistry panel reveals a sodium of 140, potassium 4.1, chloride 105, bicarbonate 28, BUN 13, creatinine 1.1, glucose 106. CRP was 6.3. Aspirate is as above. Gram stain and culture from the knee shows many white blood cells and no organisms on 2 separate aspirate culture and an OR culture. Knee x-ray done in the Emergency Room shows soft tissue swelling and large joint effusion. ASSESSMENT AND PLAN: Likely septic arthritis. He will be placed on Rocephin and vancomycin empirically. A Lyme PCR is pending. Cultures are pending. We will follow along with you. Thank you for this consultation.
[2017-01-02] MEDS ORDERED: CEFTRIAXONE SOD INJ 2,000 MG in DEXTROSE 5% 50ML 50 ML IV SCH (10:30)
[2017-01-02] MEDS ORDERED: VANCOMYCIN INJ 2,500 MG in SODIUM CHLORIDE 0.9% 500ML 500 ML IV ONE (10:30)
--- NOTE | 2017-01-02 11:46 | Pharmacy Progress Note ---
Pharmacy Antibiotic Consult Date of Service: Jan 02, 2017. Pharmacy Dosing Scope Pharmacy is consulted to initiate Vancomycin IV dosing therapy, order appropriate labs and adjust drug dose/frequency. Subjective The patient is a 41 year old male admitted on Jan 01, 2017 at 09:04. Objective Height (Feet): 5 Height (Inches): 10.00 Weight (Kilograms): 99.200 Lab Results (24hrs): Test 01/02/17 06:50 White Blood Count 7.75 K/uL (4.8-10.8) Red Blood Count 4.30 M/uL (4.7-6.1) Hemoglobin 13.3 g/dL (14.0-18.0) Hematocrit 39.1 % (42-52) Mean Corpuscular Volume 90.9 fL (80-100) Mean Corpuscular Hemoglobin 30.9 pg (25-34) Mean Corpuscular Hemoglobin Concent 34.0 g/dl (32-36) RDW Standard Deviation 41.9 fL (36.4-46.3) RDW Coefficient of Variation 12.6 % (11.5-14.5) Platelet Count 155 K/uL (130-400) Mean Platelet Volume 10.8 fL (7.4-10.4) Assessment & Plan Assessment Patient is a 41 year old male with possible septic arthritis s/p aspiration in OR. Vancomycin initiated by Dr. Herron for septic arthritis, joint fluid cultures have no growth to date. He received one dose of ancef 2 gm iv perioperatively and is currently on Rocephin IV and vancomycin. Patient is currently afebrile. Vancomycin * Goal trough 15-20 mcg/mL for septic arthritis * Loading dose: (25mg/kg) * Maintenance dose: (12.6 mg/kg) * Vanco trough ordered prior to the 4th dose since scr level is from 12/31. * Dosing frequency slightly longer than estimated half-life of 8 hrs. Plan * Vancomycin 2500mg IV x 1, then vanco 1250mg IV q 10 hours. * Trough level ordered for 01/03 @1730 Pharmacy will continue to follow and will adjust dose/frequency as necessary. Thank you
[2017-01-02] MEDS ORDERED: SODIUM CHLORIDE 0.65% NA SOLN 45 ML (OCEAN) PRN (12:00)
[2017-01-02] MEDS ORDERED: NURSING DECISION MEDICATION ORDER SCH (12:00)
[2017-01-02] MEDS: OXYCODONE HCL IR 5 MG TAB (IMMEDIATE RELEASE) PO PRN ×2 (14:36→21:58)
[2017-01-02 15:46] VITALS: BP 129/83; PULSE 80; TEMP 36.9; O2SAT 95
[2017-01-02 18:59] VITALS: O2SAT 98
[2017-01-02] MEDS ORDERED: VANCOMYCIN INJ 1,000 MG in SODIUM CHLORIDE 0.9% 250ML 250 ML IV SCH (21:00)
[2017-01-02] MEDS: VANCOMYCIN INJ 1,250 MG in SODIUM CHLORIDE 0.9% 250ML 250 ML IV SCH (21:47)
[2017-01-02 23:25] VITALS: BP 107/61; PULSE 74; TEMP 37; O2SAT 96
[2017-01-03] MEDS: D5W AND 1/2NSS + 20MEQ KCL 1,000 ML IV SCH ×2 (02:18→11:54)
[2017-01-03] MEDS: ACETAMINOPHEN 500 MG TAB PO SCH ×2 (06:05→14:23)
--- NOTE | 2017-01-03 06:48 | Orthopedic Progress Note ---
Orthopedic Progress Note Date of Service Jan 03, 2017. Subjective Post OP Day: 2 Reports: feeling well, pain controlled w PO medications, Denies: complaints, chest pain, SOB, nausea / vomiting, light headedness, calf pain Objective calves soft nontender, N/V intact, capillary refill less than 2 sec., dressing C /D/I, A&O x3, toes mobile, hemovac drainage (25cc) Date Time Temp Pulse Resp B/P (MAP) Pulse Ox O2 Delivery O2 Flow Rate FiO2 01/02/17 23:25 37.0 74 18 107/61 (76) 96 Room Air 01/02/17 23:15 Room Air 01/02/17 18:59 98 Room Air 01/02/17 15:50 Room Air 01/02/17 15:46 36.9 80 18 129/83 (98) 95 Room Air 01/02/17 08:00 Room Air 01/02/17 07:46 37.0 85 18 126/73 (90) 94 Room Air Laboratory Results 24 Hours: Test 01/02/17 06:50 01/03/17 06:28 Hematocrit 39.1 % Hemoglobin 13.3 g/dL Assessment & Plan Assessment: POD #2 arthroscopic I&D right knee, chondroplasty patella. Plan: PT/OT Medical Management DVT - ASA one daily Cultures showing no growth at this time PCR testing still pending for lyme disease Inhouse Planning Pain Management: Morphine, PO Tylenol, Oxy IR DVT Prophylaxis: SCDs, ASA Discharge Planning Discharge Planning: uncertain
[2017-01-03 06:59] LABS: HEMATOCRIT 38.3 % (42-52); MEAN CELL VOLUME 90.3 fL (80-100); MEAN CORPUSCULAR HEMOGLOBIN 31.1 pg (25-34); MEAN CORPUSCULAR HGB CONC 34.5 g/dl (32-36); MEAN PLATELET VOLUME 10.6 fL (7.4-10.4); PLATELET COUNT 165 K/uL (130-400); RED BLOOD COUNT 4.24 M/uL (4.7-6.1); WHITE BLOOD COUNT 7.48 K/uL (4.8-10.8)
[2017-01-03 07:04] VITALS: BP 125/86; PULSE 67; TEMP 36.9; O2SAT 95
[2017-01-03 07:34] LABS: CREATININE 1.08 mg/dl (0.60-1.40)
[2017-01-03] MEDS: VANCOMYCIN INJ 1,250 MG in SODIUM CHLORIDE 0.9% 250ML 250 ML IV SCH (07:37)
[2017-01-03] MEDS ORDERED: FLUCONAZOLE 100 MG TAB PO SCH (09:00)
[2017-01-03 09:37] VITALS: BP 147/96; PULSE 85; O2SAT 100
[2017-01-03] MEDS: CETIRIZINE HCL 10 MG TAB PO SCH (09:46)
[2017-01-03] MEDS: PANTOprazole SOD 40 MG TAB PO SCH (09:46)
[2017-01-03] MEDS: ASPIRIN 81 MG ECTAB PO SCH (09:46)
--- NOTE | 2017-01-03 13:57 | Progress Note ---
Subjective Date of Service: Jan 03, 2017. Subjective Pt evaluation today including: conversation w/ patient, conversation w/ family , physical exam, chart review, lab review pt seen in followup, 1/2 culture with rare yeast, no sensitivity to follow. placed on fluconazole today. family at bedside, drain removed this am. some pain but feeling better, asking to go home as it is patient's birthday. no f/c. No drainage from wound, able to ambulate. All remaining ros reviewed and are negative. Problem List Medical Problems: (1) Septic arthritis of knee, right Status: Acute Objective Vital Signs Date Time Temp Pulse Resp B/P (MAP) Pulse Ox O2 Delivery O2 Flow Rate FiO2 01/03/17 09:37 85 100 01/03/17 08:00 Room Air 01/03/17 07:04 36.9 67 18 125/86 (99) 95 Room Air 01/02/17 23:25 37.0 74 18 107/61 (76) 96 Room Air 01/02/17 23:15 Room Air 01/02/17 18:59 98 Room Air 01/02/17 15:50 Room Air 01/02/17 15:46 36.9 80 18 129/83 (98) 95 Room Air Physical Exam General Appearance: WD/WN, no apparent distress Eyes: normal inspection, EOMI Neck: supple Respiratory/Chest: lungs clear, normal breath sounds, no respiratory distress Cardiovascular: no edema Abdomen: soft Extremities: no pedal edema Neurologic/Psychiatric: alert, oriented x 3 Skin: normal color Comments: right knee sutures intact, no warmth, no erythema, no induration, no drainage, min tenderness Laboratory Results Item Value Date Time Gram Stain - Final Resulted 01/01/17 0120 Joint Fluid/Space (Synovial) Knee Right Gram Stain - Final Resulted 01/01/17 0120 Joint Fluid/Space (Synovial) Knee Right Gram Stain - Final Resulted 01/01/17 0000 Aspirate - Other Knee Right Last 24 Hours Test 01/03/17 06:28 White Blood Count 7.48 K/uL Red Blood Count 4.24 M/uL Hemoglobin 13.2 g/dL Hematocrit 38.3 % Mean Corpuscular Volume 90.3 fL Mean Corpuscular Hemoglobin 31.1 pg Mean Corpuscular Hemoglobin Concent 34.5 g/dl RDW Standard Deviation 40.8 fL RDW Coefficient of Variation 12.4 % Platelet Count 165 K/uL Mean Platelet Volume 10.6 fL Creatinine 1.08 mg/dl Est Creatinine Clear Calc Drug Dose 105.2 ml/min Estimated GFR () 97.6 Estimated GFR (Non- 84.2 Assessment and Plan (1) Septic arthritis of knee, right Assessment & Plan: discussion with patient and family regarding treatment options, no sensitivities to be done on yeast. Po fluconazole vs IV caspo discussed with pt, he would like to proceed with fluconazole and close follow up rather than undergo picc line placement due to his work schedule. He will continue on fluconazole, I have asked him to follow in 2 weeks or sooner if he develops redness, pain, swelling, drainage, f/c. If no clinical improvement, he is willing to undergo IV therapy. will plan to follow in office post d/c. ok for d/c from ID standpoint, would give 8 weeks to start. will follow. Problem Qualifiers (1) Septic arthritis of knee, right: Septic arthritis organism: due to unspecified organism Qualified Codes: M00.9 - Pyogenic arthritis, unspecified
[2017-01-03] MEDS ORDERED: RXC5 PO (15:24)
[2017-01-03] MEDS ORDERED: ASPEC81 PO (15:24)
[2017-01-03] MEDS ORDERED: DFL100 PO (15:24)
[2017-01-03] MEDS ORDERED: ACET-24 PO (15:24)
--- NOTE | 2017-01-03 15:31 | Discharge Instructions ---
Discharge Instructions Date of Service Jan 03, 2017. Admission Reason for Admission: Infection Of Right Knee Discharge Discharge Diagnosis / Problem: Infection Right Knee Discharge Goals Goal(s): Decrease discomfort, Improve function Activity Recommendations Activity Limitations: per Instructions/Follow-up section Weightbearing Status: Right weightbearing (as tolerated) . Instructions / Follow-Up Instructions / Follow-Up ACTIVITY RECOMMENDATIONS: * You may walk on the leg with or without crutches as comfort permits. * Bending of the knee should start at once. * Do not shower for 48 hours following surgery. SPECIAL CARE INSTRUCTIONS: * You may cleanse the skin adjacent to the small wounds with soap and water at the time of the first dressing change. * The application of an ice bag to the front and sides of the knee will decrease swelling and discomfort for the first 48 hours. * The small incisions may be sore and develop bruising. This bruising does not require any special care. SPECIAL PRECAUTIONS: * If you experience unusual pain unrelieved by prescriptions, temperature elevation (100 degrees F. or above) or progressive swelling or bleeding, you should contact our office at for further evaluation. * You may have been prescribed pain medication. If you experience nausea and/or fine skin rash, discontinue this medication and contact our office at for an alternate medication. DRESSING: * Dressing should be comfortable and absorb any leakage of fluid and/or blood. * The dressing may become moist or bloodstained. * Dressing change daily. Once the wound is no longer draining, you may place BandAids on the small incisions. * Bandaids may be used over next several days as needed and can be discontinued when there is not further drainage from the wounds. FOLLOW UP VISIT: If appointment is not already scheduled: Please call [facility] to make a follow-up appointment iin 10 -14 days from the day of your surgery at . FOLLOW UP WITH DR BALTAZAR IN 2 WEEKS. CALL FOR APPOINTMENT. [phone] Current Hospital Diet Patient's current hospital diet: Regular Diet Discharge Diet Recommended Diet: Regular Diet Procedures Procedures Performed: ARTHROSCOPIC INCISION AND DRAINAGE RIGHT KNEE, chondroplasty patella Pending Studies Studies pending at discharge: yes List of pending studies: FINAL CULTURES Medical Emergencies . Who to Call and When: Medical Emergencies: If at any time you feel your situation is an emergency, please call 911 immediately. . Non-Emergent Contact Non-Emergency issues call your: Surgeon Call Non-Emergent contact if: temperature is above 101.5, your pain is not controlled, your pain is worsening, wound has increased drainage, wound has increased redness . "Provider Documentation" section prepared by Ernesto Rodriguez. . VTE Core Measure Inpt VTE Proph given/why not?: Other Anticoagulation, T.E.D. Stockings, SCD's [place] Drug Monitoring Program Search Results: patient reviewed within database, no issues identified
[2017-01-03 16:29] VITALS: BP 147/96; PULSE 85; TEMP 36.9; O2SAT 100
[2017-01-03] MEDS ORDERED: VANCOMYCIN TROUGH ONE (17:30)
[2017-01-04 11:30] LABS: LYME DNA PCR CSF OR SYNOVIAL Not detected (Not Detected); LYME DNA SOURCE Synovial Fluid
--- NOTE | 2017-01-05 11:11 | Discharge Summary ---
Orthopedic Discharge Summary Admission Date/Reason Jan 01, 2017 at 09:04 Infection Of Right Knee. Discharge Date/Disposition Jan 03, 2017 Home Diagnosis Principal Diagnosis: S/P I&D right knee Medication Reconciliation as per discharge instructions Admission Physical Exam As per Admitting History & Physical. Hospital Course POD #1 patient was feeling well. Dressing was clean dry and intact. He had decent ROM. Cultures were still pending at this point with no growth. POD #2 Patient was doing well with good ROM. dressing was clean, dry and intact. Cultures were growing yeast but not cassi albicans. He was placed on fluconazole PO. He will follow up with infectious disease and [facility]. Discharge Instructions Please refer to the electronic Patient Visit Report (Discharge Instructions) for additional information.
== END 2017-01-03 16:45 | disposition home or self-care (01) | DRG 502 ==
LOC: C.EDB 21:01 → C.MSW 01-01 09:04 → ENRESERV 01-01 09:23
PROVIDERS: ADMIT Orthopaedic Surgery; ATTEND Orthopaedic Surgery
PROC: 0M9N3ZX Drainage of Right Knee Bursa and Ligament, Percutaneous Approach, Diagnostic (ICD-10-PCS; 2016-12-31)
PROC: 0S9C4ZX Drainage of Right Knee Joint, Percutaneous Endoscopic Approach, Diagnostic (ICD-10-PCS; principal; 2017-01-01 06:30)
PROC: 0MDN4ZZ Extraction of Right Knee Bursa and Ligament, Percutaneous Endoscopic Approach (ICD-10-PCS; principal; 2017-01-01 06:30)
PROC: 0M9 Bursae and Ligaments, Drainage (ICD-10-PCS; principal; 2017-01-01 06:30)
DX: M00.9 Pyogenic arthritis, unspecified (principal); B37.9 Candidiasis, unspecified; E78.5 Hyperlipidemia, unspecified; Z79.899 Other long term (current) drug therapy